=== PATIENT | male | born 1955 | race Asian ===

== ENCOUNTER 2019-04-10 22:10 | Emergency (ER) | payer MEDICAID ==
[~2019-04-10] VITALS: Ht 172.7 cm; Wt 74.4 kg
[~2019-04-10 22:10] MED LIST: ALEN1TAB2 PO; CALC650T90 PO; CHOL500021 PO
[2019-04-10 22:16] VITALS: BP 140/73
--- NOTE | 2019-04-10 22:21 | NUR ---
PT AMBULATED TO LOBBY. ACCOMPANIED BY SON.
--- NOTE | 2019-04-10 23:25 | NUR ---
PT AMBULATED TO ER BED 11
--- NOTE | 2019-04-10 23:45 | NUR ---
63 Y/O MALE BIB SON C/O HIGH BLOOD PREASSURE AT HOME. +DIZZINESS, +HUANG. DENIES BURRY VISION 7/10 HUANG ACUTE PAIN. PT DENIES PAST MEDICAL HX. FAMILY HAS BEEN EVALUATING BP AT HOME AND IT HAS NOT BEEN <140 SYSTOLIC. PATIENT IS A/O X4 AND IS ABLE TO FOLLOW COMMANDS. BREATH SOUNDS ARE CLEAR BILATERALLY. HE IS IN NO DISTRESS AT THIS TIME. PER SON, PATIENT EXPERIENCED HIGH BLOOD PRESSURE 10 DAYS AGO AND HAVE BEEN MONITORING SINCE THEN. HE STATES THAT " BLOOD PRESSURE DIFFERS RIGHT TO LEFT. BLOOD PRESSURE WHILE LYING DOWN IS 126/68 AND WHILE SITTING IS 102/68. DENIES N/V/D. ER MD MADE AWARE OF STATUS. PLACED ON MONITOR. SIDE [id number]. SON IS AT BEDSIDE. HX: DENIES NKDA RX:DENIES
--- NOTE | 2019-04-11 00:01 | NUR ---
ER MD AT BEDSIDE EVALUATING PATIENT. PT.'S SON IS AT [facility].
[2019-04-11] MEDS ORDERED: NACL 0.9% 1,000 ML IV ONE (00:15)
[2019-04-11] MEDS ORDERED: KETOROLAC 30 MG/ML VIAL IVP ONE (00:15)
[2019-04-11] MEDS ORDERED: ASPIRIN 81 MG TAB.CHEW PO ONE (00:15)
[2019-04-11 00:45] LABS: HEMATOCRIT 27.9 % (36-52); RED BLOOD CELL COUNT(AUTO) 4.44 MIL/uL (4.20-6.10); WHITE BLOOD COUNT (AUTO) 6.6 K/uL (4.8-10.8)
[2019-04-11 01:01] LABS: HEMOGLOBIN 8.3 g/dL (12.0-18.0); MEAN CORPUSCULAR HEMOGLOBIN 19 pg (27-31); MEAN CORPUSCULAR HGB CONC 30 g/dL (33-37); PLATELET COUNT (AUTO) 284 K/uL (140-450); RED CELL DISTRIBUTION WIDTH 18.2 % (11.6-13.7)
[2019-04-11 01:02] LABS: PROTHROMBIN TIME 9.4 secs (10.8-13.4)
[2019-04-11 01:03] LABS: ALBUMIN 3.3 g/dL (3.4-5.0); ANION GAP 12.2 (8-16); CARBON DIOXIDE 26.3 mmol/L (21-32); CREATININE 0.7 mg/dL (0.7-1.3); EOSINOPHILS % (MANUAL) 3 % (0-4); LYMPHOCYTES % (MANUAL) 36 % (20-46); MONOCYTES % (MANUAL) 4 % (5-12); POTASSIUM 4.5 mmol/L (3.5-5.1); TOTAL BILIRUBIN 0.2 mg/dL (0.0-1.0)
--- NOTE | 2019-04-11 03:06 | NUR ---
ERMD AT BEDSIDE.
[2019-04-11 03:36] VITALS: BP 126/68
== END 2019-04-11 03:36 | disposition home or self-care (01) ==
LOC: MED 22:10
DX: I10 Essential (primary) hypertension (principal); F17.200 Nicotine dependence, unspecified, uncomplicated; Z79.899 Other long term (current) drug therapy
CPT/HCPCS: 36415; 71045; 80053; 84484; 85025; 85610; 85730; 93005; 96361; 96374; 99284; J1885; J7030; Q0092; 99406

== ENCOUNTER 2019-07-13 13:37 | Emergency (ER) | payer MEDICAID ==
[~2019-07-13] VITALS: Ht 177.8 cm; Wt 69.9 kg
[2019-07-13 13:43] VITALS: BP 112/62
--- NOTE | 2019-07-13 14:10 | NUR ---
63/M TO ED WITH C/O CHEST PAIN RADIATING TO BACK. DENIES SOB, LUNG SOUNDS CLEAR BILATERALLY. REPORTS PREVIOUS BACK INJURY. NO DISTRESS NOTED. ABLE TO SPEAK IN FULL SENTENCES WITHOUT DIFFICULTY. IN BED FOR MSE.
[2019-07-13] MEDS ORDERED: NACL 0.9% 1,000 ML IV ONE (14:15)
[2019-07-13] MEDS ORDERED: ASPIRIN 81 MG TAB.CHEW PO ONE (14:15)
[2019-07-13] MEDS ORDERED: KETOROLAC 30 MG/ML VIAL IVP ONE (14:15)
[2019-07-13] MEDS ORDERED: ONDANSETRON 4 MG/2 ML VIAL IVP ONE (14:15)
--- NOTE | 2019-07-13 14:26 | NUR ---
TO XRAY VIA [facility]
[2019-07-13 14:43] LABS: BASOPHILS # (AUTO) 0.1 K/uL (0.00-0.22); BASOPHILS % (AUTO) 0.9 % (0.0-2.0); EOSINOPHILS # (AUTO) 0.8 K/uL (0-0.4); EOSINOPHILS % (AUTO) 9.6 % (0.0-4.0); HEMATOCRIT 26.9 % (36-52); LYMPHOCYTES # (AUTO) 1.2 K/uL (2.0-11.5); MEAN CORPUSCULAR HEMOGLOBIN 18 pg (27-31); MEAN CORPUSCULAR HGB CONC 30 g/dL (33-37); MEAN CORPUSCULAR VOLUME 61.9 fL (80-94); MONOCYTES # (AUTO) 0.8 K/uL (0.8-1.0); MONOCYTES % (AUTO) 9.4 % (1.7-9.3); NEUTROPHILS # (AUTO) 5.5 K/uL (1.8-7.7); NEUTROPHILS % (AUTO) 66.1 % (42.2-75.2); PLATELET COUNT (AUTO) 348 K/uL (140-450); RED BLOOD CELL COUNT(AUTO) 4.35 MIL/uL (4.20-6.10); RED CELL DISTRIBUTION WIDTH 17.9 % (11.6-13.7); WHITE BLOOD COUNT (AUTO) 8.3 K/uL (4.8-10.8)
[2019-07-13 14:57] LABS: ANION GAP 12.5 (8-16); CARBON DIOXIDE 25.2 mmol/L (21-32); CREATININE 0.6 mg/dL (0.7-1.3); POTASSIUM 3.7 mmol/L (3.5-5.1)
--- NOTE | 2019-07-13 15:01 | NUR ---
REPORTS PAIN AT 4/10 POST TORADOL AND ASA ADMINISTRATION. DENIES ANY N/V AFTER ZOFRAN.
[2019-07-13 15:02] LABS: ALBUMIN 2.8 g/dL (3.4-5.0); TOTAL BILIRUBIN 0.3 mg/dL (0.0-1.0)
--- NOTE | 2019-07-13 15:47 | NUR ---
CT CONSENT SIGNED, RADIOLOGY INFORMED
--- NOTE | 2019-07-13 16:03 | NUR ---
TO CT VIA W/C.
--- NOTE | 2019-07-13 16:25 | NUR ---
RETURN FROM CT.
--- NOTE | 2019-07-13 18:22 | NUR ---
DR TEMPLE SPEAKING WITH PATIENT. PT WISHES TO BE TRANSFERRED TO ANOTHER FACILITY OR POSSIBLY DISCHARGED. SON TO SPEAK WITH PATIENT AND FAMILY AND MAKE A DECISION. WILL FOLLOW UP.
--- NOTE | 2019-07-13 18:34 | NUR ---
PT WISHES TO LEAVE AMA. DR TEMPLE SPEAKING WITH PATIENT.
--- NOTE | 2019-07-13 18:45 | NUR ---
IV removed, catheter intact and site benign. Applied folded 4x4 gauze and tape to stop bleeding.
--- NOTE | 2019-07-13 18:48 | NUR ---
PT TO BE DISCHARGED WITH RX FOR NORCO FOR TEMPORARY PAIN RELIEF AND GIVEN D/C INSTRUCTIONS. STRESSED THE IMPORTANCE OF FOLLOWING UP WITH PMD TO EVALUATE PULMONARY NODULES. PT AND SON VERBALIZED UNDERSTANDING. PT REFUSING ADMISSION AGAINST ADVICE OF [facility] BIANCHI FORM HAS BEEN SIGNED.
[2019-07-13 18:50] VITALS: BP 127/63
== END 2019-07-13 18:48 | disposition left against medical advice (07) ==
LOC: MED 13:37
DX: S22.050A Wedge compression fracture of T5-T6 vertebra, initial encounter for closed fracture (principal); S22.080A Wedge compression fracture of T11-T12 vertebra, initial encounter for closed fracture; R07.89 Other chest pain; D64.9 Anemia, unspecified; R91.8 Other nonspecific abnormal finding of lung field; R42 Dizziness and giddiness; F17.210 Nicotine dependence, cigarettes, uncomplicated; X50.0XXA Overexertion from strenuous movement or load, initial encounter; Y92.89 Other specified places as the place of occurrence of the external cause; Y93.89 Activity, other specified; Y99.8 Other external cause status
CPT/HCPCS: 36415; 71045; 71275; 72080; 80053; 84484; 85025; 85379; 93005; 96361; 96374; 96375; 99284; J1885; J2405; J7030; Q9967

== ENCOUNTER 2019-07-24 08:00 | Emergency (ER) | payer MEDICAID ==
[~2019-07-24] VITALS: Ht 165.1 cm; Wt 69.9 kg
--- NOTE | 2019-07-24 08:00 | NUR ---
Patient BIBA ALS, transferred to bed 2. RN evaluating patient at bedside.
--- NOTE | 2019-07-24 08:06 | NUR ---
Dr. Chavez is evaluating the patient at bedside.
[2019-07-24 08:09] VITALS: BP 108/57
[2019-07-24] MEDS ORDERED: LORazepam 2 MG/ML VIAL IVP ONE (08:15)
--- NOTE | 2019-07-24 08:22 | NUR ---
BROUGHT IN BY AMBULANCE C/O STABBING CHEST PAIN RADIATING TO BACK OF NECK 04/30 PAIN X 1 HOUR AGO, PT WAS RESTING WHEN PAIN BEGAN. 325MG ASA & 1 TAB NTG GIVEN IN TRANSIT TO HOSPITAL. CHEST PAIN REDUCED TO 09/28. NO SOB, N/V. PT REPORTS TAKING NAPROXEN AT HOME FOR PAIN PMH: BROKEN VERTEBRAE X 2WEEKS AGO, MASS FOUND IN LUNGS DURING XRAY NKA
[2019-07-24] MEDS ORDERED: LORazepam 2 MG/ML VIAL ONE (08:24)
[2019-07-24 08:34] LABS: BASOPHILS # (AUTO) 0.1 K/uL (0.00-0.22); BASOPHILS % (AUTO) 0.5 % (0.0-2.0); EOSINOPHILS # (AUTO) 1.2 K/uL (0-0.4); EOSINOPHILS % (AUTO) 9.9 % (0.0-4.0); HEMATOCRIT 28.3 % (36-52); HEMOGLOBIN 8.3 g/dL (12.0-18.0); LYMPHOCYTES # (AUTO) 0.9 K/uL (2.0-11.5); LYMPHOCYTES % (AUTO) 7.8 % (20.5-51.1); MEAN CORPUSCULAR HEMOGLOBIN 19 pg (27-31); MEAN CORPUSCULAR HGB CONC 29 g/dL (33-37); MEAN CORPUSCULAR VOLUME 63.2 fL (80-94); MONOCYTES % (AUTO) 8.4 % (1.7-9.3); NEUTROPHILS # (AUTO) 8.9 K/uL (1.8-7.7); NEUTROPHILS % (AUTO) 73.4 % (42.2-75.2); PLATELET COUNT (AUTO) 393 K/uL (140-450); RED BLOOD CELL COUNT(AUTO) 4.48 MIL/uL (4.20-6.10); RED CELL DISTRIBUTION WIDTH 18.2 % (11.6-13.7); WHITE BLOOD COUNT (AUTO) 12.1 K/uL (4.8-10.8)
--- NOTE | 2019-07-24 08:44 | NUR ---
TO CT VIA [facility].
[2019-07-24 08:49] LABS: PROTHROMBIN TIME 10.1 secs (10.8-13.4)
[2019-07-24 08:53] LABS: ALBUMIN 2.7 g/dL (3.4-5.0); ANION GAP 13.9 (8-16); CARBON DIOXIDE 24.8 mmol/L (21-32); CREATININE 0.7 mg/dL (0.7-1.3); POTASSIUM 3.7 mmol/L (3.5-5.1); TOTAL BILIRUBIN 0.3 mg/dL (0.0-1.0)
--- NOTE | 2019-07-24 09:00 | NUR ---
PT BACK FROM CT. RESTING AT BEDSIDE, ALL NEEDS ARE MET
[2019-07-24] MEDS ORDERED: ONDANSETRON 4 MG/2 ML VIAL IVP ONE (10:00)
[2019-07-24] MEDS ORDERED: MORPHINE SULFATE 4 MG/ML SYR IVP ONE (10:00)
--- NOTE | 2019-07-24 10:22 | NUR ---
PT IS RESTING. REPORTS 0/10 PAIN, REFUSED MORPHINE & ZOFRAN. C/O MILD UPPER BODY ITCHING BUT DOES NOT WANT ANY MEDICATION AT THIS TIME.
--- NOTE | 2019-07-24 10:29 | NUR ---
Dr. Chavez is re-evaluating the patient at bedside.
[2019-07-24 11:22] VITALS: BP 126/54
--- NOTE | 2019-07-24 11:23 | NUR ---
Patient discharged with v/s stable. Written and verbal after care instructions given and explained. Patient alert, oriented and verbalized understanding of instructions. Ambulatory with steady gait. All questions addressed prior to discharge. ID band removed. Patient advised to follow up with PMD. Rx of ZOFRAN, PERCOCET given. Patient educated on indication of medication including possible reaction and side effects. Opportunity to ask questions provided and answered.
== END 2019-07-24 11:23 | disposition home or self-care (01) ==
LOC: MED 08:00
DX: R07.9 Chest pain, unspecified (principal); M54.9 Dorsalgia, unspecified; R91.8 Other nonspecific abnormal finding of lung field
CPT/HCPCS: 36415; 71045; 71250; 80053; 83880; 84484; 85025; 85610; 85730; 93005; 96374; 99284; J2060; Q0092; Q0163